=== PATIENT | female | born 1975 | race Caucasian/White ===

== ENCOUNTER → 2018-05-16 | Day surgery (SDC) | payer OTHER ==
[2018-05-13 14:44] LABS: BASOPHILS # (AUTO) 0.1 (0.0-0.1); BASOPHILS % 0.9 % (0.0-1.0); EOSINOPHILS # (AUTO) 0.7 (0.0-0.4); EOSINOPHILS % 10.8 % (0.0-6.0); HEMATOCRIT 39.3 % (34.2-44.1); LYMPHOCYTES # (AUTO) 2.9 (1.0-3.2); MEAN CORPUSCULAR HGB CONC 33.1 g/dL (31-35); MEAN CORPUSCULAR VOLUME 99.7 fL (81-99); MONOCYTES # (AUTO) 0.5 (0.2-0.8); MONOCYTES % 7.8 % (4.4-11.3); NEUTROPHILS # (AUTO) 2.3 (2.1-6.9); PLATELET COUNT 232 x10e3/uL (140-360); RED BLOOD COUNT 3.94 x10e6/uL (3.6-5.1)
[2018-05-13 15:01] LABS: ALANINE AMINOTRANSFERASE 44 IU/L (0-55); ALBUMIN 4.3 g/dL (3.5-5.0); ALKALINE PHOSPHATASE 102 IU/L (40-150); ANION GAP 13.2 mmol/L (8-16); BLOOD UREA NITROGEN 17 mg/dL (7-26); BUN/CREATININE RATIO 18 (6-25); CALCIUM 9.9 mg/dL (8.4-10.2); CARBON DIOXIDE 25 mmol/L (22-29); CHLORIDE 102 mmol/L (98-107); CREATININE, SERUM 0.94 mg/dL (0.57-1.11); EST GLOMERULAR FILTRATION RATE > 60 ML/MIN (60-); GLUCOSE 95 mg/dL (74-118); POTASSIUM 4.2 mmol/L (3.5-5.1); SODIUM 136 mmol/L (136-145)
[2018-05-13 15:08] LABS: INR 0.82; PROTHROMBIN TIME 11.8 seconds (11.9-14.5)
[2018-05-13 15:09] LABS: PARTIAL THROMBOPLASTIN TIME 31.4 seconds (23.8-35.5)
[~2018-05-16] MED LIST: ALBUTEROL0.63 MG/3 INH; BUSPIRONE HCL5 MG PO; CLONAZEPAM1 MG PO; DILANTIN50 MG PO; FENTANYL CITRATE/PF 100MCG/2 ML INJ ONE; FLUOXETINE HCL20 M1 PO; HYDROXYZINE HCL25 MG PO; LANTUS 3ML100 UNITS/ SQ; LEVETIRACETAM500 MG PO; MELOXICAM7.5 MG PO; MIDAZOLAM HCL 2 MG/2 ML VIAL ONE; NOVOLOG100 UNIT/1 SQ; PHENYTOIN100 MG/4 M PO; PROMETHAZINE HC25 M1 PO; PROPOFOL IV EMULSION 10 MG/ML 50 ML VIAL ONE; SUCRALFATE1 G/10 ML PO; TYLENOL WITH C1 EACH PO; ZOLPIDEM TARTRAT5 MG PO; ondansetron PO
--- OUTSIDE RECORDS SUMMARY | 2018-05-16 11:40 | XMS REPORT | Clinical Summary ---
Author Author [facility] Address Unknown Phone Unavailable Care Team Providers Care Cardiac Cath Lab Radiology Technologist Name Role Phone PCP Unavailable Allergies Not on File Medications Not on file Active Problems Not on file Encounters Care Team Description Date Type Specialty Marvin Sharp DO Unspecified internal derangement of left knee (Primary Dx) 04/26/2018 Outside Orders Central Scheduling after 05/15/2017 Social History Date Tobacco Use Types Packs/Day Years Used Never Assessed Sex Assigned at Date Recorded Not on file Industry Job Start Date Occupation Not on file Not on file Not on file Travel End Travel History Travel Start No recent travel history available. Last Filed Vital Signs Not on file Plan of Treatment Care Team Description Date Type Specialty Marvin Sharp DO [address] [address] [phone] 1, Cgewv Mri Room 05/17/2018 Appointment Radiology Results Not on fileafter 05/15/2017 Insurance Payer Benefit Subscriber ID Type Phone Address Plan / Group MEDICAID - MEDICAID [facility] xxxxxxxxx Medicaid CARE COMM STAR Contracted PLAN (Home) [place] [address]
--- OUTSIDE RECORDS SUMMARY | 2018-05-16 11:40 | XMS REPORT | Clinical Summary ---
Author Author [facility] Address Unknown Phone Unavailable Care Team Providers Care Neonatal Icu Coordinator Name Role Phone Asked, No Pcp PCP Unavailable Allergies No Known Allergies Medications End Date Status Medication Sig Dispensed Refills Start Date Active insulin GLARGINE (LANTUS) Inject 20 0 100 unit/mL injection Units under (vial) the skin 2 (two) times a day. Active insulin ASPART (NovoLOG) Inject under 0 100 unit/mL injection the skin 3 (three) times a day before meals. Per sliding scale Active FLUoxetine (PROzac) 20 MG Take 20 mg by 0 capsule mouth nightly. Active busPIRone (BUSPAR) 10 MG Take 10 mg by 0 tablet mouth 3 (three) times a day. Active zolpidem (AMBIEN) 10 mg Take 10 mg by 0 tablet mouth nightly. Active amitriptyline (ELAVIL) 50 Take 100 mg 0 MG tablet by mouth nightly. Active acetaminophen-codeine Take 1 tablet 0 (TYLENOL WITH CODEINE #4) by mouth 300-60 mg per tablet every 6 (six) hours as needed for moderate pain. Active clonAZEPAM (KlonoPIN) 1 Take 1 mg by 0 MG tablet mouth 3 (three) times a day. 06/05/2018 Active ibuprofen (ADVIL,MOTRIN) Take 1 tablet 30 tablet 0 600 MG tablet (600 mg 9 total) by mouth every 8 (eight) hours as needed for moderate pain for up to 30 days. 06/05/2018 Active acetaminophen (TYLENOL Take 2 30 tablet 0 EXTRA STRENGTH) 500 MG tablets 9 tablet (1,000 mg total) by mouth every 6 (six) hours as needed for moderate pain for up to 30 days. 05/06/2018 Discontinued insulin lispro (HumaLOG) Inject under 0 100 unit/mL injection the skin 3 (three) times a day before meals. Per Sliding Scale 05/06/2018 Discontinued FLUoxetine (PROzac) 40 MG Take 40 mg by 0 capsule mouth 2 (two) times a day. Active Problems Not on file Encounters Care Team Description Date Type Specialty David Ferguson MD Seizure (HCC) (Primary Dx) 05/08/2018 Emergency Emergency Medicine Ralph Matthews MD Hypoglycemia (Primary Dx); Left elbow pain; Acute pain of left shoulder; Acute pain of left knee; Blunt trauma; Other generalized epilepsy, intractable, without status epilepticus (HCC); Type 1 diabetes mellitus with other specified complication (HCC); Tobacco abuse; Effusion of left knee 05/06/2018 Emergency Emergency Medicine after 05/15/2017 Social History Date Tobacco Use Types Packs/Day Years Used Current Every Day Smoker Smokeless Tobacco: Current User Alcohol Use Drinks/Week oz/Week Comments No Alcohol Habits Answer Date Recorded How often do you have a drink containing alcohol? Never 05/06/2018 How many drinks containing alcohol do you have on Not asked a typical day when you are drinking? How often do you have six or more drinks on one Not asked occasion? Sex Assigned at Date Recorded Not on file Industry Job Start Date Occupation Not on file Not on file Not on file Travel End Travel History Travel Start No recent travel history available. Last Filed Vital Signs Time Taken Vital Sign Reading 05/08/2018 10:30 PM CDT Blood Pressure 110/82 05/08/2018 10:30 PM CDT Pulse 98 05/08/2018 10:30 PM CDT Temperature 36.2 C (97.1 F) 05/08/2018 10:30 PM CDT Respiratory Rate 18 05/08/2018 10:30 PM CDT Oxygen Saturation 94% - Inhaled Oxygen - Concentration - Weight - 05/08/2018 6:02 PM CDT Height 162.6 cm (5' 4") - Body Mass Index - Plan of Treatment Health Maintenance Due Date Last Done Comments DIABETIC RETINAL EYE EXAM 1975 DIABETIC FOOT EXAM 05/22/1985 URINE MICROALBUMIN 05/22/1985 CERVICAL CANCER SCREENING 05/22/1996 INFLUENZA VACCINE 09/22/2017 Procedures Comments Procedure Name Priority Date/Time Associated Diagnosis GRAM STAIN STAT 05/08/2018 7:36 PM CDT URINE CULTURE STAT 05/08/2018 7:36 PM CDT URINE DRUGS OF ABUSE STAT 05/08/2018 SCREEN 7:20 PM CDT ESTIMATED GFR STAT 05/08/2018 6:53 PM CDT URINALYSIS SCREEN AND STAT 05/08/2018 MICROSCOPY, WITH REFLEX 6:53 PM CDT TO CULTURE MAGNESIUM LEVEL STAT 05/08/2018 6:53 PM CDT PHOSPHORUS LEVEL STAT 05/08/2018 6:53 PM CDT COMPREHENSIVE METABOLIC STAT 05/08/2018 PANEL 6:53 PM CDT HC COMPLETE BLD COUNT STAT 05/08/2018 W/AUTO DIFF 6:53 PM CDT POC GLUCOSE Routine 05/06/2018 11:[address] LOWER EXTREMITY WO STAT 05/06/2018 CONTRAST LEFT 9:57 AM CDT GRAM STAIN STAT 05/06/2018 8:08 AM CDT URINE CULTURE STAT 05/06/2018 8:08 AM CDT XR SHOULDER 2+ VW LEFT STAT 05/06/2018 7:49 AM CDT XR KNEE 3 VW LEFT STAT 05/06/2018 7:49 AM CDT XR ELBOW 3+ VW LEFT STAT 05/06/2018 7:49 AM CDT URINALYSIS SCREEN AND STAT 05/06/2018 MICROSCOPY, WITH REFLEX 6:54 AM CDT TO CULTURE ESTIMATED GFR STAT 05/06/2018 6:50 AM CDT COMPREHENSIVE METABOLIC STAT 05/06/2018 PANEL 6:50 AM CDT HC COMPLETE BLD COUNT STAT 05/06/2018 W/AUTO DIFF 6:50 AM CDT POC GLUCOSE Routine 05/06/2018 6:27 AM CDT SPLINT APPLICATION Routine 05/06/2018 6:18 AM CDT after 05/15/2017 Results * Gram stain (05/08/2018 7:36 PM CDT) Only the most recent of 2 results within the time period is included. Gram stain result Rare WBC's [facility] Rare Gram negative rods HOSPITAL Rare Gram positive cocci in pairs Comment: Specimen Information Specimen Source: Urine Specimen Site: Clean catch Specimen Urine Performing Organization Address [facility] Phone Number [facility] [place] [address] PATHOLOGY [place] [address] HOSPITAL * Urine culture (05/08/2018 7:36 PM CDT) Only the most recent of 2 results within the time period is included. Urine culture isolate Mixed luis 10-5 col/cc [facility] Comment: HOSPITAL Specimen Information Specimen Source: Urine Specimen Site: Clean catch Specimen Urine Performing Organization Address [facility] Phone Number [facility] [place] [address] PATHOLOGY [place] [address] HOSPITAL * Urine drugs of abuse screen (05/08/2018 7:20 PM CDT) Amphetamine screen, urine Negative [facility] Barbiturate screen, urine Negative [facility] Benzodiazepine screen, Negative [facility] urine [facility] Cannabinoid screen, urine Negative [facility] Cocaine screen, urine Negative [facility] Methadone metabolite Negative [facility] (EDDP), urine [facility] Opiates screen, urine Positive (A) [facility] Oxycodone screen, urine Negative [facility] Phencyclidine screen, Negative [facility] urine [facility] Tricyclic screen, urine Positive (A) [facility] Comment: HOSPITAL Drug screen minimum concentration of detectability Amphetamines 1000 ng/mL Barbiturates 200 ng/mL Benzodiazepines 300 ng/mL Cocaine 300 ng/mL Methadone 300 ng/mL Opiates 300 ng/mL Oxycodone 300 ng/mL Phencyclidine 25 ng/mL Cannabinoids 50 ng/mL Tricyclics 1000 ng/mL Results are from screening tests and should only be used for medical evaluation. Drug testing for legal purposes requires definitive (or confirmatory) testing methods, which are available upon request. Contact the laboratory if definitive testing is required. Specimen Urine Performing Organization Address City/State/[place] [address] PATHOLOGY AND GENOMIC MEDICINE [address] * Urinalysis screen and microscopy, with reflex to culture (05/08/2018 6:53 PM CDT) Only the most recent of 2 results within the time period is included. Specimen site Clean catch [facility] Color, UA Straw [facility] Appearance, UA Hazy [facility] Specific gravity, UA 1.011 1.001 - 1.035 [facility] pH, UA 6.0 5.0 - 8.5 [facility] Protein, UA Negative Negative [facility] Glucose, UA Negative Negative [facility] Ketones, UA Negative Negative [facility] Bilirubin, UA Negative Negative [facility] Blood, UA Negative Negative [facility] Nitrite, UA Negative Negative [facility] Urobilinogen, UA <2.0 <2.0 [facility] Leukocyte esterase, UA Small (A) Negative [facility] Epithelial cells, UA 3 /HPF [facility] WBC, UA 2 0 - 4 /HPF [facility] RBC, UA 1 0 - 5 /HPF [facility] Bacteria, UA Few None seen [facility] Yeast, UA None seen [facility] Yeast with pseudohyphae, None seen [facility] Specimen Urine Performing Organization Address City/[facility]/Zipcode Phone Number [facility] [place] [address] PATHOLOGY AND GENOMIC MEDICINE [address] * Estimated GFR (05/08/2018 6:53 PM CDT) Only the most recent of 2 results within the time period is included. Estimated GFR >=90 mL/min/1.73 m2 [facility] Comment: HOSPITAL CatergoryUnitsInte rpretation G1 >=90 Normal or high G2 60-89Mildly decreased [id number] Mildly to moderately decreased H6a06-26 Moderately to severely decreased G4 15-29Severely decreased G5 <15Kidney failure The eGFR was calculated using the Chronic Kidney Disease Epidemiology Collaboration (CKD-EPI) equation. Interpretation is based on recommendations of the National Kidney Foundation-Kidney Disease Outcomes Quality Initiative (NKF-KDOQI) published in 2014. Specimen Plasma specimen Performing Organization Address City/[facility]/Zipcode Phone Number [facility] DEPARTMENT OF [address] [place] [address] PATHOLOGY AND GENOMIC MEDICINE [address] * CBC with platelet and differential (05/08/2018 6:53 PM CDT) Only the most recent of 2 results within the time period is included. WBC 6.76 4.50 - 11.00 k/uL [facility] RBC 3.37 (L) 4.20 - 5.50 m/uL [facility] HGB 11.1 (L) 12.0 - 16.0 g/dL [facility] HCT 34.2 (L) 37.0 - 47.0 % [facility] MCV 101.5 (H) 82.0 - 100.0 fL [facility] MCH 32.9 27.0 - 34.0 pg [facility] MCHC 32.5 31.0 - 37.0 g/dL [facility] RDW - SD 44.8 37.0 - 55.0 fL [facility] MPV 10.5 8.8 - 13.2 fL [facility] Platelet count 213 150 - 400 k/uL [facility] Nucleated RBC 0.00 /100 WBC [facility] Neutrophils 42.8 39.0 - 69.0 % [facility] Lymphocytes 40.8 25.0 - 45.0 % [facility] Monocytes 5.5 0.0 - 10.0 % [facility] Eosinophils 9.9 (H) 0.0 - 5.0 % [facility] Basophils 0.4 0.0 - 1.0 % [facility] Immature granulocytes 0.6Comment: "Immature 0.0 - 1.0 % [facility] granulocytes" (promyelocytes, HOSPITAL myelocytes, metamyelocytes) Specimen Blood Performing Organization Address City/[facility]/Zipcode Phone Number [facility] DEPARTMENT OF [address] [place] [address] PATHOLOGY AND GENOMIC MEDICINE [address] * Phosphorus level (05/08/2018 6:53 PM CDT) Phosphorus 3.4 2.4 - 4.5 mg/dL [facility] Specimen Plasma specimen Performing Organization Address City/[facility] Phone Number [facility] DEPARTMENT OF [address] [place] [id number] PATHOLOGY AND GENOMIC MEDICINE [address] * Magnesium level (05/08/2018 6:53 PM CDT) Magnesium 1.7 1.6 - 2.6 mg/dL [facility] Specimen Plasma specimen Performing Organization Address [facility] Phone Number [facility] DEPARTMENT OF [address] [place] [address] PATHOLOGY AND GENOMIC MEDICINE [address] * Comprehensive metabolic panel (05/08/2018 6:53 PM CDT) Only the most recent of 2 results within the time period is included. Sodium 145 135 - 148 mEq/L [facility] Potassium 3.9Comment: Specimen is 3.5 - 5.0 mEq/L [facility] hemolyzed. Interpret HOSPITAL results accordingly. Chloride 107 98 - 112 mEq/L [facility] CO2 24 24 - 31 mEq/L [facility] Anion gap 14@ANIO 7 - 15 mEq/L [facility] BUN 14 6 - 20 mg/dL [facility] Creatinine 0.76 0.50 - 0.90 mg/dL [facility] Glucose 90 65 - 99 mg/dL [facility] Calcium 9.7 8.3 - 10.2 mg/dL [facility] Protein 7.6 6.3 - 8.3 g/dL [facility] Comment: HOSPITAL [place] 4.6-7.0 g/dL 1 week 4.4-7.6 g/dL 7 months-1year 5.1-7.3 g/dL 1-2 years5.6-7 .5 g/dL >3 years6.0-8 .0 g/dL 18-150 6.3-8.3 g/dL Albumin 3.4 (L) 3.5 - 5.0 g/dL [facility] A/G ratio 0.8 0.7 - 3.8 [facility] Alkaline phosphatase 86 35 - 104 U/L [facility] AST 30Comment: Specimen is 10 - 35 U/L [facility] slightly hemolyzed. Interpret HOSPITAL results accordingly. ALT 28 5 - 50 U/L [facility] Total bilirubin <0.2 0.0 - 1.2 mg/dL [facility] Specimen Plasma specimen Performing Organization Address City/[facility]/Zipcode Phone Number [facility] DEPARTMENT OF [address] [place] [address] PATHOLOGY AND GENOMIC MEDICINE [address] * POC glucose (05/06/2018 11:38 AM CDT) Only the most recent of 2 results within the time period is included. POC glucose 106 (H) 65 - 99 mg/dL [facility] Comment: [facility]ITAL [facility] Notified RN Meter ID: [id number] Drug Enforcement Agent: Valdo Bliss Performing Organization Address City/[facility]/Zipcode Phone Number [facility] DEPARTMENT OF [address] [place] [address] PATHOLOGY AND GENOMIC MEDICINE [address] * CT Lower Extremity Wo Contrast Left (05/06/2018 9:57 AM CDT) Narrative Performed At EXAMINATION:CT LOWER EXTREMITY WO CONTRAST LEFT [facility] CLINICAL HISTORY:pain trauma tibial fxr TECHNIQUE: Multiple axial images of the left lower extremity were obtained without contrast. CT imaging was performed with iterative reconstruction technique and/or automated exposure control to reduce radiation dose. COMPARISON: Radiographs from May 06, 2018. FINDINGS: No acute fracture or dislocation. Apparent cortical defect along the anterior tibial plateau with associated marginated lucencies could be related to prior trauma or surgery. Mild tricompartmental degenerative changes characterized by joint space narrowing, subchondral sclerosis and marginal spurring. Moderate joint effusion is present. No focal abnormalities of the visualized soft tissues. Tendons crossing the ankle joint are intact. IMPRESSION: 1.No acute fractures. Moderate joint effusion. 2.Findings in the proximal tibia could be related to prior injury or surgery. Please correlate with history. If there is continued pain, MRI may be of benefit. [id number] Procedure Note Hm Interface, Radiology Results Incoming - 05/06/2018 10:14 AM CDT EXAMINATION: CT LOWER EXTREMITY WO CONTRAST LEFT CLINICAL HISTORY: pain trauma tibial fxr TECHNIQUE: Multiple axial images of the left lower extremity were obtained without contrast. CT imaging was performed with iterative reconstruction technique and/or automated exposure control to reduce radiation dose. COMPARISON: Radiographs from May 06, 2018. FINDINGS: No acute fracture or dislocation. Apparent cortical defect along the anterior tibial plateau with associated marginated lucencies could be related to prior trauma or surgery. Mild tricompartmental degenerative changes characterized by joint space narrowing, subchondral sclerosis and marginal spurring. Moderate joint effusion is present. No focal abnormalities of the visualized soft tissues. Tendons crossing the ankle joint are intact. IMPRESSION: 1. No acute fractures. Moderate joint effusion. 2. Findings in the proximal tibia could be related to prior injury or surgery. Please correlate with history. If there is continued pain, MRI may be of benefit. [id number] Performing Organization Address [facility] Phone Number [facility] [address] [place] [address] * XR Shoulder 2+ Vw Left (05/06/2018 7:49 AM CDT) Narrative Performed At EXAMINATION:XR SHOULDER 2VW LEFT [facility] CLINICAL HISTORY:pain fall COMPARISON:None. IMPRESSION: 1.There is no evidence of acute left shoulder fracture or dislocation. [id number] Procedure Note Interface, Radiology Results Incoming - 05/06/2018 8:05 AM CDT EXAMINATION: XR SHOULDER 2 VW LEFT CLINICAL HISTORY: pain fall COMPARISON: None. IMPRESSION: 1. There is no evidence of acute left shoulder fracture or dislocation. [facility]-[id number] Performing Organization Address [facility] Phone Number [facility] [address] [place] [address] * XR Knee 3 Vw Left (05/06/2018 7:49 AM CDT) Narrative Performed At EXAMINATION:XR KNEE 3 VW LEFT [facility] CLINICAL HISTORY:pain COMPARISON:None. IMPRESSION: Sclerotic changes across the proximal tibial metaphysis. Minimal cortical irregularity medially. Suspect subtle impacted fracture proximal tibial metaphysis. CT left knee recommended. No effusion. No dislocation. Mild degenerative patellofemoral change Mild lateral joint compartment narrowing [id number] Procedure Note Interface, Radiology Results Incoming - 05/06/2018 8:06 AM CDT EXAMINATION: XR KNEE 3 VW LEFT CLINICAL HISTORY: pain COMPARISON: None. IMPRESSION: Sclerotic changes across the proximal tibial metaphysis. Minimal cortical irregularity medially. Suspect subtle impacted fracture proximal tibial metaphysis. CT left knee recommended. No effusion. No dislocation. Mild degenerative patellofemoral change Mild lateral joint compartment narrowing [id number] Performing Organization Address [facility]/Zipcode Phone Number [facility] [address] [place] [address] * XR Elbow 3+ Vw Left (05/06/2018 7:49 AM CDT) Narrative Performed At EXAMINATION:XR ELBOW 3VW LEFT [facility] CLINICAL HISTORY:pain fall COMPARISON:None. IMPRESSION: There is no evidence of acute left elbow fracture, dislocation, or joint effusion. [id number] Procedure Note Hm Interface, Radiology Results Incoming - 05/06/2018 8:05 AM CDT EXAMINATION: XR ELBOW 3 VW LEFT CLINICAL HISTORY: pain fall COMPARISON: None. IMPRESSION: There is no evidence of acute left elbow fracture, dislocation, or joint effusion. [id number] Performing Organization Address [facility] Phone Number [facility] [address] [place] [address] * Splint Application (05/06/2018 6:18 AM CDT) Narrative Performed At Ralph Matthews MD 05/09/2018 10:25 AM Splint Application Performed by: Ralph Matthews MD Authorized by: Ralph Matthews MD Pre-procedure details: Sensation:Normal Skin color:Normal Procedure details: Laterality:Left Location:Knee Knee:L knee Cast type: Short leg static. Splint type:Knee immobilizer Post-procedure details: Pain:Improved Sensation:Normal Skin color:Normal Patient tolerance of procedure:Tolerated well, no immediate complications after 05/15/2017 Insurance Payer Benefit Subscriber ID Type Phone Address Plan / Group [facility] MEDICAID [facility] xxxxxxxxx HMO COMM STAR+ NISHANT Advance Directives Patient has advance care planning documents on file. For more information, иван e contact: Kaleb Saez [address] [place] [address]
--- OUTSIDE RECORDS SUMMARY | 2018-05-16 11:40 | XMS REPORT ---
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 Allergies, Adverse Reactions, Alerts This patient has no known allergies or adverse reactions. Medications This patient has no known medications. Encounters Start Date/Time End Date/Time Encounter Type Admission Type Attending [facility] Emergency Department Facility Care Department Encounter ID 2017-10-29 15:52:34 Inpatient [facility] [id number] 2018-02-28 12:04:00 2018-02-28 12:04:00 Emergency [facility] [id number] 2017-11-22 00:00:00 2017-11-22 00:00:00 Outpatient [facility] [id number] 2017-11-16 00:00:00 2017-11-16 00:00:00 Outpatient [facility] [id number] 2017-11-08 00:00:00 2017-11-08 00:00:00 Outpatient [facility] [id number] 2017-11-02 00:00:00 2017-11-02 00:00:00 Outpatient [facility] [id number] 2017-10-28 20:36:12 2017-10-28 20:36:12 Outpatient [facility] [id number] 2017-10-28 19:55:59 2017-10-28 19:55:59 Outpatient [facility] [id number] 2017-10-28 08:57:00 2017-10-28 08:57:00 Inpatient [facility] [id number] 2017-10-28 00:00:00 2017-10-28 00:00:00 Outpatient [facility] [id number] 2017-10-28 00:00:00 2017-10-28 00:00:00 Outpatient [facility] [id number] 2017-10-21 09:54:20 2017-10-21 09:54:20 Outpatient [facility] [id number] 2017-10-21 00:00:00 2017-10-21 00:00:00 Outpatient [facility] [id number] 2017-10-12 12:58:34 2017-10-12 12:58:34 Outpatient [facility] [id number] 2017-08-19 18:04:24 2017-08-19 18:04:24 Emergency [facility] [id number] 2017-07-29 00:00:00 2017-07-29 00:00:00 Outpatient [facility] [id number] 2017-07-29 00:00:00 2017-07-29 00:00:00 Outpatient [facility] [id number] 2017-07-15 14:52:02 2017-07-15 14:52:02 Outpatient [facility] [id number] 2017-07-15 14:26:16 2017-07-15 14:26:16 Outpatient [facility] [id number] 2017-07-15 00:00:00 2017-07-15 00:00:00 Outpatient [facility] [id number] 2017-06-17 00:00:00 2017-06-17 00:00:00 Outpatient [facility] [id number] 2017-06-10 00:00:00 2017-06-10 00:00:00 Outpatient [facility] [id number] 2017-06-01 00:00:00 2017-06-01 00:00:00 Outpatient [facility] [id number] 2017-05-27 00:02:10 2017-05-27 00:02:10 Emergency [facility] [id number] 2017-05-26 23:48:31 2017-05-26 23:48:31 Emergency [facility] [id number] 2017-05-26 21:05:21 2017-05-26 21:05:21 Emergency [facility] [id number] 2017-04-29 00:00:00 2017-04-29 00:00:00 Outpatient [facility] [id number] 2017-04-23 00:00:00 2017-04-23 00:00:00 Outpatient [facility] [id number] 2017-04-15 00:00:00 2017-04-15 00:00:00 Outpatient [facility] [id number] 2017-04-13 10:52:37 2017-04-13 10:52:37 Outpatient [facility] [id number] 2017-04-13 09:50:24 2017-04-13 09:50:24 Outpatient [facility] [id number] 2017-04-13 09:20:55 2017-04-13 09:20:55 Outpatient [facility] [id number] 2017-04-13 09:07:36 2017-04-13 09:07:36 Outpatient [facility] [id number] 2017-04-13 00:00:00 2017-04-13 00:00:00 Outpatient [facility] [id number] 2017-04-13 00:00:00 2017-04-13 00:00:00 Outpatient [facility] [id number] 2016-09-24 16:58:30 2016-09-24 16:58:30 Emergency [facility] [id number] 2016-07-15 13:13:53 2016-07-15 13:13:53 Emergency [facility] [id number] 2016-07-15 12:21:25 2016-07-15 12:21:25 Emergency [facility] [id number] Results Test Description Test Time Test Comments Text Results Atomic Results Result Comments - CT ABD PELVIS W/CONT 2018-05-06 01:18:00 Patient Name: LEONEL WILEY Unit No: [id number] EXAMS: CPT CODE: [id number] CT ABD PELVIS W/CONT [id number] EXAM: CT, CT abdomen pelvis with contrast: 05/06/2018 HISTORY: PAIN COMPARISON: None available. TECHNIQUE: Helical imaging was performed from diaphragm through the symphysis with coronal and sagittal reconstructions. CT imaging was performed with exposure control parameters to reduce radiation dose. IV CONTRAST: 100 cc Isovue. GI CONTRAST: YES CT Radiation Dose: VZB=011.41 mGy-cm FINDINGS: LOWER CHEST: Mild dependent atelectasis in the posterior lung bases.. LIVER: Unremarkable. GALLBLADDER: Surgically absent. INTRAHEPATIC BILE DUCT AND EXTRAHEPATIC BILE DUCT: Unremarkable. PANCREAS: Unremarkable. SPLEEN: Unremarkable. ADRENALS: Unremarkable. KIDNEYS AND URETERS: Unremarkable. STOMACH: Unremarkable. BOWEL: The small bowel loops in the abdomen and pelvis appear unremarkable. Moderately large fecal material in the colon. APPENDIX: Not seen on the exam. Surgical clip in the right lower flank seen, probably probably prior appendect benita PERITONEUM AND RETROPERITONEUM: No ascites or free air. There is no aortic aneurysm or dissection. LYMPH NODES: Unremarkable. PELVIS: No pelvic mass or adenopathy. Hysterectomy. Ovaries not well identified. BLADDER: Unremarkable. OSSEOUS STRUCTURES: No acute abnormality seen. [facility] NAME: LEONEL WILEY Radiology Department PHYS: Mari Trujillo MD [address] : 1975 AGE: 42 SEX: F [place] [address] LOC: Juan Pablo.RAD PHONE #: [phone] EXAM DATE: 05/06/2018 STATUS: REG CLI FAX #: [phone] RAD NO: Page 1 Signed Report 1 Patient Name: LEONEL WILEY Unit No: [id number] EXAMS: CPT CODE: [id number] CT ABD PELVIS W/CONT [id number] <Continued> SOFT TISSUES: Unremarkable. IMPRESSION: 1. Moderate large fecal material in the colon. 2. Cholecystectomy. Hysterectomy. SL: ARIE at 0118 Reported and signed by: Valentino Donato M.D. CC: Mari Vasquez MD Technologist: Sudeep Stephen, RT CTDI: 5.99 DLP: 326.41 Trnscrbd D/ (0118) [email or web address] [facility] NAME: INEZLEONEL Vazquez Radiology Department PHYS: Mari Trujillo MD [address] : 1975 AGE: 42 SEX: F [place] [address] LOC: [place] Pablo.RAD PHONE #: [phone] EXAM DATE: 05/06/2018 STATUS: REG CLI FAX #: [phone] RAD NO: Page 2 Signed Report 1 Patient Name: LEONEL WILEY Unit No: [id number] EXAMS: CPT CODE: [id number] CT ABD PELVIS W/CONT 71435 <Continued> Orig Print D/T: S: 05/06/2018 (0121) [facility] NAME: LEONEL WILEY Radiology Department PHYS: Mari Trujillo MD [address] : 1975 AGE: 42 SEX: F [place], [place] [address] LOC: JANE PHONE #: [phone] EXAM DATE: 05/06/2018 STATUS: REG CLI FAX #: [phone] RAD NO: Page 3 Signed Report 1
[2018-05-16 14:00] VITALS: BP 108/72
--- NOTE | 2018-05-16 20:33 | Operative Report ---
DATE OF PROCEDURE: 05/16/2018 SURGEON: Eliu Crisostomo MD PROCEDURE: EGD with biopsy and esophageal dilatation. INDICATIONS FOR PROCEDURE: Dysphagia. MEDICATIONS: The patient was done under MAC, please see anesthesiologist's note. PROCEDURE IN DETAIL: With the patient in left lateral decubitus position, a flexible fiberoptic Olympus gastroscope was introduced into the esophagus under direct visualization without any difficulty. There was some patchy erythema noted in the distal esophagus. A minute submucosal nodule was noted in the distal esophagus that was biopsied. There was a mild stricture noted at the GE junction that was dilated to size 52-[place]. The scope was then advanced with ease into the stomach mucosa overlying the antrum and the body revealed some patchy erythema and [id number] edema and biopsies were obtained sent to stain for H pylori. The pylorus was of normal contour and shape was intubated with ease and the scope was advanced all the way to the second portion of the duodenum. Focal nodularity was noted in the proximal second portion that was biopsied. Biopsies also were obtained from the proximal second portion and duodenal bulb to rule out sprue considering the patient's history of diarrhea. The scope was then withdrawn back into the stomach and retroflexed mucosa overlying the fundus and cardia appeared to be within normal limits. The scope was then straightened out and was subsequently withdrawn. The patient tolerated the procedure well. IMPRESSION: 1. Distal esophagitis. 2. Esophagus dilated to size 52-[place]gas[place]za. 3. Minute submucosal nodule distal esophagus, biopsied. 4. Gastritis, biopsied. Biopsies sent to stain for H pylori. 5. Rule out sprue. 6. Focal nodularity proximal second portion of duodenum, biopsied. PLAN: Follow up histology. Initiate Protonix 40 mg one p.o. q.a.m. a.c. Eliu Crisosotmo MD [facility] [place]/MODL /[id number] cc: Teofilo Mejia MD
== END | disposition home or self-care (01) ==
LOC: OR 11:38
PROVIDERS: ATTEND Internal Medicine Gastroenterology
DX: K22.2 Esophageal obstruction (principal); K21.0 Gastro-esophageal reflux disease with esophagitis; K31.9 Disease of stomach and duodenum, unspecified; K29.50 Unspecified chronic gastritis without bleeding; R19.7 Diarrhea, unspecified; Z01.812 Encounter for preprocedural laboratory examination; E11.9 Type 2 diabetes mellitus without complications; Z79.4 Long term (current) use of insulin; G40.909 Epilepsy, unspecified, not intractable, without status epilepticus; J45.909 Unspecified asthma, uncomplicated; F17.210 Nicotine dependence, cigarettes, uncomplicated; F41.8 Other specified anxiety disorders; Z87.898 Personal history of other specified conditions
CPT/HCPCS: 36415 ×2; 43239; 43450; 80053; 82948; 85025; 85610; 85730; J2250; J2704